=== PATIENT | male | born 1995 | race Caucasian/White ===

== ENCOUNTER 2016-10-07 23:14 | Emergency (ER) | payer BC ==
[~2016-10-07] VITALS: Ht 182.9 cm; Wt 106.0 kg
[~2016-10-07 23:14] MED LIST: RAPID SEQUENCE INDUCTION BAG ONE
[2016-10-07] MEDS ORDERED: MIDAZOLAM HCL 5 MG/ML 2ML VIAL IV ONE (23:16)
[2016-10-07] MEDS ORDERED: SUCCINYLCHOLINE 100MG/5ML SYR IV ONE (23:16)
[2016-10-07] MEDS ORDERED: FENTANYL CITRATE 100 MCG 2 ML CARP IV ONE (23:16)
[2016-10-07] MEDS ORDERED: SODIUM CHLORIDE 0.9% 10ML FLUSH IV ONE (23:16)
[2016-10-07] MEDS ORDERED: VECURONIUM BROMIDE 10 MG VIAL IV ONE (23:16)
[2016-10-07 23:25] VITALS: TEMP 36.7; Ht 182.9 cm; Wt 106.0 kg
[2016-10-07 23:42] LABS: ISTAT CREATININE 1.3 mg/dl (0.6-1.3); ISTAT HEMOGLOBIN 16.3 g/dl (14.0-18.0); ISTAT IONIZED CALCIUM 1.17 mmol/l (1.12-1.32)
[2016-10-07 23:48] LABS: HEMATOCRIT 46.3 % (42-52); MEAN CELL VOLUME 82.7 fL (80-100); MEAN CORPUSCULAR HEMOGLOBIN 29.8 pg (25-34); MEAN CORPUSCULAR HGB CONC 36.1 g/dl (32-36); MEAN PLATELET VOLUME 11.1 fL (7.4-10.4); PLATELET COUNT 245 K/uL (130-400); WHITE BLOOD COUNT 29.73 K/uL (4.8-10.8)
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
[2016-10-07 23:56] LABS: PARTIAL THROMBOPLASTIN RATIO 0.9; PROTHROMBIN TIME (PATIENT) 11.2 SECONDS (9.0-12.0)
[2016-10-08] LABS: CHEMISTRY HEMOLYSIS HEMVISTA
[2016-10-08 00:01] LABS: ALKALINE PHOSPHATASE 70 U/L (45-117); ALT/SGPT 38 U/L (12-78); AST/SGOT 19 U/L (15-37); BLOOD UREA NITROGEN 14 mg/dl (7-18); BUN/CREATININE RATIO 8.6 (10-20); CALCIUM 9.1 mg/dl (8.5-10.1); CARBON DIOXIDE 21 mmol/L (21-32); CHLORIDE 104 mmol/L (98-107); GLUCOSE 187 mg/dl (70-99); POTASSIUM 3.3 mmol/L (3.5-5.1); SODIUM 146 mmol/L (136-145)
[2016-10-08 00:10] LABS: BASO ABS # 0.51 K/uL (0-0.2); BASOPHIL % 1.7 % (0-2); COMPLETE YES; EOSINOPHIL % 3.5 %; LYMPH ABS # 10.61 K/uL (1.2-3.4); LYMPHOCYTE % 35.7 %; NEUTROPHILS % 55.6 %
[2016-10-08] MEDS ORDERED: CEFAZOLIN SOD 1000MG/55 ML D5W IV STA (00:52)
[2016-10-08] MEDS ORDERED: DIPHTHERIA/TETANUS/PERTUSSIS 0.5 ML SYR/VIAL IM. ONE (01:00)
[2016-10-08 01:04] LABS: BENZODIAZEPINE, URINE POS (NEG); COCAINE,URINE NEG (NEG); PHENCYCLIDINE, URINE NEG (NEG)
[2016-10-08] MEDS ORDERED: FENTANYL CITRATE INJ 50 MCG/1 ML 2 ML VIAL ONE ×2 (01:36→02:09)
[2016-10-08] MEDS ORDERED: MIDAZOLAM HCL 1 MG/ML 2ML VIAL ONE (01:36)
[2016-10-08] MEDS ORDERED: NURSING VERBAL MED ORDER ONE (01:45)
[2016-10-08] MEDS ORDERED: VECURONIUM BROMIDE 10 MG VIAL ONE (02:09)
[2016-10-08 02:30] VITALS: BP 149/88; PULSE 81; O2SAT 99
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
[2016-10-14 02:47] LABS: HYDROXYETHYLFLURAZEPAM CONF NEGATIVE NG/ML (CUTOFF=50); HYDROXYMIDAZOLAM 189 NG/ML (CUTOFF=50); HYDROXYTRIAZOLAM CONF NEGATIVE NG/ML (CUTOFF=50); TEMAZEPAM CONF NEGATIVE NG/ML (CUTOFF=50)
== END 2016-10-08 02:30 | disposition short-term general hospital (02) ==
LOC: EDBD 23:14 → C.EDB 23:15
DX: S02.92XA Unspecified fracture of facial bones, initial encounter for closed fracture (principal); S09.90XA Unspecified injury of head, initial encounter; S52.601A Unspecified fracture of lower end of right ulna, initial encounter for closed fracture; V28.4XXA Motorcycle driver injured in noncollision transport accident in traffic accident, initial encounter